=== PATIENT | female | born 1950 | race Hispanic/Latino ===

== ENCOUNTER → 2020-12-31 | Outpatient (CLI) | payer OTHER | END | disposition home or self-care (01) | LOC: RAH 10:11 | PROVIDERS: ATTEND Obstetrics & Gynecology | DX: N85.4 Malposition of uterus (principal); N85.8 Other specified noninflammatory disorders of uterus | CPT/HCPCS: 76856 ==

== ENCOUNTER → 2022-12-04 | Outpatient (CLI) | payer OTHER | END | disposition home or self-care (01) | LOC: SHCH 10:55 | PROVIDERS: ATTEND Internal Medicine | DX: I65.23 Occlusion and stenosis of bilateral carotid arteries (principal); R09.89 Other specified symptoms and signs involving the circulatory and respiratory systems | CPT/HCPCS: 93880 ==

== ENCOUNTER → 2023-01-04 | Outpatient (CLI) | payer OTHER ==
[2022-12-30 12:23] VITALS: BP 186/82
[2022-12-30 12:24] VITALS: BP 140/70
[~2023-01-04] VITALS: Ht 152.4 cm; Wt 82.7 kg
[~2023-01-04] MED LIST: ASPI-1197 PO; GLIP5TAB11 PO; LEVO50TA11 PO; LISI40TA9 PO; METF-444 PO; PRAV40TA3 PO
== END | disposition home or self-care (01) ==
LOC: RAH 01:21
PROVIDERS: ATTEND Orthopaedic Surgery
DX: M17.11 Unilateral primary osteoarthritis, right knee (principal)
CPT/HCPCS: 73700

== ENCOUNTER 2023-01-05 09:50 | Observation (INO) | payer OTHER ==
[2022-12-30 11:38] LABS: BASOPHILS % (AUTO) 0.3 % (0.0-5.0); EOSINOPHILS % (AUTO) 1.8 % (0.0-8.0); HEMATOCRIT 40.9 % (36-48); LYMPHOCYTES % (AUTO) 36.5 % (21.0-51.0); MEAN CORPUSCULAR HEMOGLOBIN 28.7 pg (27.0-33.0); MEAN CORPUSCULAR VOLUME 89.7 fL (79-99); MONOCYTES % (AUTO) 7.3 % (3.0-13.0); NEUTROPHILS % (AUTO) 53.9 % (40.0-77.0); PLATELET COUNT (AUTO) 274 K/uL (130-400); RED BLOOD CELL COUNT(AUTO) 4.56 MIL/uL (4.00-5.50); RED CELL DISTRIBUTION WIDTH 12.6 % (11.0-15.5); WHITE BLOOD COUNT (AUTO) 6.3 K/uL (4.8-10.8)
[2022-12-30 11:59] LABS: CREATININE 0.6 mg/dL (0.5-1.5); POTASSIUM 4.6 mmol/L (3.5-5.1)
[2022-12-30 12:01] LABS: INR 0.93 (0.85-1.15); PROTHROMBIN TIME 9.9 SEC (9.6-11.6)
[2022-12-30 12:02] LABS: PARTIAL THROMBOPLASTIN TIME 25.6 SEC (26.3-35.5)
[~2023-01-05] VITALS: Ht 152.4 cm; Wt 82.7 kg
[2023-01-05] VITALS (24 sets, daily range): BP systolic 115–186; BP diastolic 50–82
[2023-01-05] MEDS ORDERED: CEFAZOLIN SODIUM 2 GM VIAL ONE ×2 (10:05→10:15)
[2023-01-05] MEDS ORDERED: 0.9%NACL 1000ML 0 ML IV ONE (10:05)
[2023-01-05] MEDS ORDERED: 0.9%NACL 1000ML 1,000 ML IV ONE (10:15)
[2023-01-05] MEDS ORDERED: LIDOCAINE PF 100MG/5ML (2%) SYRINGE 5ML ONE (14:28)
[2023-01-05] MEDS ORDERED: ONDANSETRON 4MG INJ ONE (14:28)
[2023-01-05] MEDS ORDERED: GLYCOPYRROLATE 1 MG/5 ML SYRINGE ONE (14:29)
[2023-01-05] MEDS ORDERED: FENTANYL CITRATE PF 50 MCG/1 ML 2ML VIAL ONE ×2 (14:29→15:23)
[2023-01-05] MEDS ORDERED: MIDAZOLAM HCL 1 MG/ML 2ML VIAL ONE (14:29)
[2023-01-05] MEDS ORDERED: ROCURONIUM 10MG/1ML SYR 10 MG/ML ML ONE ×2 (14:29→15:24)
[2023-01-05] MEDS ORDERED: PROPOFOL 10 MG/ML 20ML VIAL IV ONE (14:29)
[2023-01-05] MEDS ORDERED: DEXAMETHASONE SOD PHOSPHATE 10MG/ML 1ML VIAL ONE (14:29)
[2023-01-05] MEDS ORDERED: NEOSTIGMINE 5MG/5ML SYR IV ONE (14:29)
[2023-01-05] MEDS ORDERED: TRANEXAMIC ACID 1000MG/10ML ONE (14:36)
[2023-01-05] MEDS ORDERED: ROPIVACAINE 0.5% 5MG/ML 30ML IJ ONE (14:36)
[2023-01-05] MEDS ORDERED: CEFAZOLIN SODIUM 2 GM VIAL IVPB ONE (15:15)
[2023-01-05] MEDS ORDERED: TRANEXAMIC ACID 1000MG/10ML IV ONE (15:20)
[2023-01-05] MEDS ORDERED: ONDANSETRON 4MG INJ IVP PRN (15:30)
[2023-01-05] MEDS ORDERED: KCL 20 MEQ ERTAB PO PRN (15:30)
[2023-01-05] MEDS ORDERED: POTASSIUM CHLORIDE 10% ELIXIR 20 MEQ/15 ML UDCUP PO PRN (15:30)
[2023-01-05] MEDS ORDERED: 0.9%NACL 1000ML 1,000 ML IV SCH (15:30)
[2023-01-05] MEDS ORDERED: POTASSIUM CHLORIDE 20MEQ/100ML 100 ML IV PRN (15:30)
[2023-01-05] MEDS ORDERED: MEPERIDINE-PF 25 MG/ML SYG ONE ×2 (17:13→17:33)
[2023-01-05] MEDS: ACETAMINOPHEN 1,000 MG/100 ML VIAL IV SCH ×2 (17:30→21:39)
[2023-01-05] MEDS: IBUPROFEN 800MG + NS 250ML IV SCH (18:44)
[2023-01-05] MEDS: TRAMADOL HCL 50 MG TABLET PO SCH (19:05)
[2023-01-05] MEDS ORDERED: METFORMIN HCL 500 MG TABLET PO SCH (21:00)
[2023-01-05] MEDS ORDERED: GLIPIZIDE 5 MG TABLET PO SCH (21:00)
[2023-01-05] MEDS: CEFAZOLIN SODIUM 1 GM VIAL IVPB SCH (21:39)
[2023-01-05] MEDS: ASPIRIN 81 MG EC TAB PO SCH (21:40)
[2023-01-05] MEDS: METFORMIN HCL 500 MG TABLET PO SCH (21:41)
[2023-01-05] MEDS: HYDROCODONE/ACETAMINOPHEN 5/325 MG TAB PO PRN (21:44)
[2023-01-05] MEDS: INSULIN HUMULIN R 100 UNIT/ML 3ML SQ SCH (21:55)
[2023-01-05] MEDS: FAMOTIDINE 20MG TAB PO SCH (22:06)
[2023-01-05] MEDS: SIMVASTATIN 20 MG TABLET PO SCH (22:06)
[2023-01-06] MEDS: TRAMADOL HCL 50 MG TABLET PO SCH ×5 (00:16→23:25)
[2023-01-06] MEDS: IBUPROFEN 800MG + NS 250ML IV SCH ×2 (01:42→09:40)
[2023-01-06] MEDS: ACETAMINOPHEN 1,000 MG/100 ML VIAL IV SCH (02:49)
[2023-01-06 03:22] VITALS: BP 121/57
[2023-01-06 04:47] LABS: HEMATOCRIT 32.9 % (36-48); MEAN CORPUSCULAR HEMOGLOBIN 28.7 pg (27.0-33.0); MEAN CORPUSCULAR HGB CONC 31.9 g/dL (32.0-36.0); MEAN CORPUSCULAR VOLUME 89.9 fL (79-99); RED BLOOD CELL COUNT(AUTO) 3.66 MIL/uL (4.00-5.50); RED CELL DISTRIBUTION WIDTH 12.7 % (11.0-15.5); WHITE BLOOD COUNT (AUTO) 6.8 K/uL (4.8-10.8)
[2023-01-06 04:56] LABS: CREATININE 0.6 mg/dL (0.5-1.5); POTASSIUM 3.7 mmol/L (3.5-5.1)
[2023-01-06] MEDS: CEFAZOLIN SODIUM 1 GM VIAL IVPB SCH (05:16)
[2023-01-06] MEDS: INSULIN HUMULIN R 100 UNIT/ML 3ML SQ SCH ×4 (06:13→21:00)
[2023-01-06] MEDS: LEVOTHYROXINE 50 MCG TABLET PO SCH (06:14)
[2023-01-06 08:00] VITALS: BP 135/55
[2023-01-06] MEDS: HYDROCODONE/ACETAMINOPHEN 10/325 MG TAB PO PRN ×3 (09:19→19:39)
[2023-01-06] MEDS: POLYETHYLENE GLYCOL 3350 17 GM POWD.PACK PO SCH (09:19)
[2023-01-06] MEDS: METFORMIN HCL 500 MG TABLET PO SCH ×2 (09:19→17:16)
[2023-01-06] MEDS: ASPIRIN 81 MG EC TAB PO SCH ×2 (09:20→19:38)
[2023-01-06] MEDS: LISINOPRIL 40 MG TABLET PO SCH (09:20)
[2023-01-06] MEDS: GLIPIZIDE 5 MG TABLET PO SCH ×2 (09:20→17:16)
[2023-01-06] MEDS: FAMOTIDINE 20MG TAB PO SCH ×2 (09:20→19:38)
[2023-01-06 12:00] VITALS: BP 122/56
[2023-01-06 16:00] VITALS: BP 163/52
[2023-01-06 19:30] VITALS: BP 179/56
[2023-01-06] MEDS: SIMVASTATIN 20 MG TABLET PO SCH (19:38)
[2023-01-06] MEDS: MORPHINE 4 MG SYG IVP PRN (21:54)
[2023-01-06 23:31] VITALS: BP 183/69
[2023-01-07] VITALS (11 sets, daily range): BP systolic 121–195; BP diastolic 58–80
[2023-01-07] MEDS: HYDROCODONE/ACETAMINOPHEN 10/325 MG TAB PO PRN ×5 (00:36→20:58)
[2023-01-07] MEDS: MORPHINE 4 MG SYG IVP PRN ×2 (02:39→09:31)
[2023-01-07 04:33] LABS: BASOPHILS % (AUTO) 0.2 % (0.0-5.0); EOSINOPHILS % (AUTO) 0.5 % (0.0-8.0); HEMATOCRIT 33.3 % (36-48); LYMPHOCYTES % (AUTO) 22.5 % (21.0-51.0); MEAN CORPUSCULAR HEMOGLOBIN 28.5 pg (27.0-33.0); MEAN CORPUSCULAR HGB CONC 32.1 g/dL (32.0-36.0); MEAN CORPUSCULAR VOLUME 88.8 fL (79-99); NEUTROPHILS % (AUTO) 67.3 % (40.0-77.0); PLATELET COUNT (AUTO) 207 K/uL (130-400); RED BLOOD CELL COUNT(AUTO) 3.75 MIL/uL (4.00-5.50); RED CELL DISTRIBUTION WIDTH 12.6 % (11.0-15.5); WHITE BLOOD COUNT (AUTO) 8.1 K/uL (4.8-10.8)
[2023-01-07 04:49] LABS: ALBUMIN 2.8 g/dL (3.5-5.0); CREATININE 0.6 mg/dL (0.5-1.5); POTASSIUM 3.5 mmol/L (3.5-5.1); TOTAL PROTEIN, SERUM 6.4 g/dL (6.0-8.3)
[2023-01-07] MEDS: TRAMADOL HCL 50 MG TABLET PO SCH ×3 (05:42→17:11)
[2023-01-07] MEDS: LEVOTHYROXINE 50 MCG TABLET PO SCH (05:43)
[2023-01-07] MEDS: INSULIN HUMULIN R 100 UNIT/ML 3ML SQ SCH ×4 (05:53→20:28)
[2023-01-07] MEDS: METFORMIN HCL 500 MG TABLET PO SCH ×2 (09:31→17:07)
[2023-01-07] MEDS: POLYETHYLENE GLYCOL 3350 17 GM POWD.PACK PO SCH (09:31)
[2023-01-07] MEDS: LISINOPRIL 40 MG TABLET PO SCH (09:31)
[2023-01-07] MEDS: FERROUS GLUCONATE 324MG TABLET.DR PO SCH ×2 (09:31→20:32)
[2023-01-07] MEDS: FAMOTIDINE 20MG TAB PO SCH ×2 (09:31→20:32)
[2023-01-07] MEDS: ASPIRIN 81 MG EC TAB PO SCH ×2 (09:32→20:32)
[2023-01-07] MEDS: GLIPIZIDE 5 MG TABLET PO SCH ×2 (09:32→17:07)
[2023-01-07] MEDS: HYDROCODONE/ACETAMINOPHEN 5/325 MG TAB PO PRN (13:13)
[2023-01-07] MEDS ORDERED: CLONIDINE HCL 0.1 MG TABLET PO ONE (19:30)
[2023-01-07] MEDS: SIMVASTATIN 20 MG TABLET PO SCH (20:32)
[2023-01-08] MEDS: TRAMADOL HCL 50 MG TABLET PO SCH ×3 (00:16→12:44)
[2023-01-08 04:34] VITALS: BP 150/65
[2023-01-08] MEDS: LEVOTHYROXINE 50 MCG TABLET PO SCH (05:18)
[2023-01-08] MEDS: INSULIN HUMULIN R 100 UNIT/ML 3ML SQ SCH ×2 (06:13→11:22)
[2023-01-08] MEDS: HYDROCODONE/ACETAMINOPHEN 10/325 MG TAB PO PRN (08:09)
[2023-01-08] MEDS: GLIPIZIDE 5 MG TABLET PO SCH (08:10)
[2023-01-08] MEDS: LISINOPRIL 40 MG TABLET PO SCH (08:10)
[2023-01-08] MEDS: METFORMIN HCL 500 MG TABLET PO SCH (08:10)
[2023-01-08] MEDS: FERROUS GLUCONATE 324MG TABLET.DR PO SCH (08:10)
[2023-01-08] MEDS: ASPIRIN 81 MG EC TAB PO SCH (08:10)
[2023-01-08] MEDS: POLYETHYLENE GLYCOL 3350 17 GM POWD.PACK PO SCH (08:10)
[2023-01-08] MEDS: FAMOTIDINE 20MG TAB PO SCH (08:10)
[2023-01-08 08:17] VITALS: BP 133/55
[2023-01-08 11:44] VITALS: BP 155/76
[2023-01-08] MEDS: MORPHINE 4 MG SYG IVP PRN (12:48)
[2023-01-08] MEDS ORDERED: BISACODYL 10 MG SUPP.RECT RC PRN (15:30)
== END 2023-01-08 16:40 ==
LOC: DAH 09:50 → DAHIP 09:51 → 4AH 18:00
PROVIDERS: ADMIT Orthopaedic Surgery; ATTEND Orthopaedic Surgery
DX: M17.11 Unilateral primary osteoarthritis, right knee (principal); Z20.822 Contact with and (suspected) exposure to COVID-19; I10 Essential (primary) hypertension; E11.9 Type 2 diabetes mellitus without complications; D64.9 Anemia, unspecified; E03.9 Hypothyroidism, unspecified; E78.5 Hyperlipidemia, unspecified; E07.9 Disorder of thyroid, unspecified; Z79.899 Other long term (current) drug therapy; Z98.890 Other specified postprocedural states; Z68.30 Body mass index [BMI] 30.0-30.9, adult
CPT/HCPCS: 80048 ×2; 85025 ×2; 85610; 85730; 87426; 36415 ×3; 93005; 87641; 27447; 64447 ×2; 96365; 96366 ×2; 96367; 96368; 82948 ×13; 96375; 85027; 97161; 97039 ×6; 97116 ×6; 97530 ×4; 96376 ×2; 80053; A6260; C1776 ×4; G0378 ×68; A4663; J7030 ×2; J7120; J3010 ×2; J0690 ×4; J3490 ×3; J1100; J2710; J2001; J2250; J2704; J2405; J2175 ×2; J2795; J1741 ×3; J1815; A6223; G0168; A4649 ×3; A6212; A5120; A4215; A4223; A4222; A4221; J2270 ×4

== ENCOUNTER → 2023-03-19 | Outpatient (CLI) | payer OTHER | END | disposition home or self-care (01) | LOC: RAH 13:27 | PROVIDERS: ATTEND Orthopaedic Surgery | DX: M17.12 Unilateral primary osteoarthritis, left knee (principal); M85.88 Other specified disorders of bone density and structure, other site | CPT/HCPCS: 73700 ==

== ENCOUNTER 2023-03-24 06:00 | Observation (INO) | payer OTHER ==
[2023-03-17 10:30] LABS: BASOPHILS # (AUTO) 0.02 K/uL (0.00-0.20); BASOPHILS % (AUTO) 0.3 % (0.0-5.0); EOSINOPHILS # (AUTO) 0.15 K/uL (0.00-0.70); EOSINOPHILS % (AUTO) 2.2 % (0.0-8.0); HEMATOCRIT 39.9 % (36-48); IMMATURE GRANULOCYTE ABSOLUTE 0.01 K/uL (0-1); LYMPHOCYTES # (AUTO) 2.3 K/uL (1.0-4.8); LYMPHOCYTES % (AUTO) 33.5 % (21.0-51.0); MEAN CORPUSCULAR HEMOGLOBIN 27.5 pg (27.0-33.0); MEAN CORPUSCULAR HGB CONC 31.8 g/dL (32.0-36.0); MEAN CORPUSCULAR VOLUME 86.4 fL (79-99); MONOCYTES # (AUTO) 0.5 K/uL (0.1-1.0); NEUTROPHILS # (AUTO) 3.7 K/uL (1.8-7.7); NEUTROPHILS % (AUTO) 55.9 % (40.0-77.0); PLATELET COUNT (AUTO) 288 K/uL (130-400); RED BLOOD CELL COUNT(AUTO) 4.62 MIL/uL (4.00-5.50); RED CELL DISTRIBUTION WIDTH 12.7 % (11.0-15.5); WHITE BLOOD COUNT (AUTO) 6.7 K/uL (4.8-10.8)
[2023-03-17 10:39] VITALS: BP 179/86; PULSE 68; RESP 16
[2023-03-17 10:44] LABS: INR < 0.93 (0.85-1.15); PROTHROMBIN TIME 10.4 SEC (9.6-11.6)
[2023-03-17 10:45] LABS: PARTIAL THROMBOPLASTIN TIME 25.8 SEC (26.3-35.5)
[2023-03-17 10:53] LABS: CREATININE 0.5 mg/dL (0.5-1.5); POTASSIUM 4.3 mmol/L (3.5-5.1)
[~2023-03-24] VITALS: Ht 152.4 cm; Wt 78.2 kg
[2023-03-24] VITALS (28 sets, daily range): BP systolic 117–159; BP diastolic 49–85; PULSE 62–82; RESP 12–19; O2SAT 98–100
[2023-03-24] MEDS ORDERED: CEFAZOLIN SODIUM 2 GM VIAL ONE (06:29)
[2023-03-24] MEDS ORDERED: 0.9%NACL 1000ML 1,000 ML IV ONE (06:29)
[2023-03-24] MEDS ORDERED: HYDROMORPHONE 1 MG INJ ONE (06:58)
[2023-03-24] MEDS ORDERED: FAMOTIDINE 20MG VIAL IV ONE (06:58)
[2023-03-24] MEDS ORDERED: TRANEXAMIC ACID 1000MG/10ML ONE (07:00)
[2023-03-24] MEDS ORDERED: LIDOCAINE PF 100MG/5ML (2%) SYRINGE 5ML ONE (07:05)
[2023-03-24] MEDS ORDERED: PROPOFOL 10 MG/ML 20ML VIAL IV ONE ×2 (07:06→09:55)
[2023-03-24] MEDS ORDERED: GLYCOPYRROLATE 1 MG/5 ML SYRINGE ONE (07:06)
[2023-03-24] MEDS ORDERED: FENTANYL CITRATE PF 50 MCG/1 ML 2ML VIAL ONE ×2 (07:06→10:30)
[2023-03-24] MEDS ORDERED: ROCURONIUM 10MG/1ML SYR 10 MG/ML ML ONE (07:06)
[2023-03-24] MEDS ORDERED: ROPIVACAINE 0.5% 5MG/ML 30ML IJ ONE (07:30)
[2023-03-24] MEDS ORDERED: NEOSTIGMINE 5MG/5ML SYR IV ONE (09:53)
[2023-03-24] MEDS ORDERED: ONDANSETRON 4MG INJ IVP PRN (10:00)
[2023-03-24] MEDS ORDERED: ONDANSETRON 4MG INJ ONE (10:03)
[2023-03-24] MEDS ORDERED: ACETAMINOPHEN 1,000 MG/100 ML VIAL IV ONE (11:21)
[2023-03-24] MEDS: INSULIN HUMULIN R 100 UNIT/ML 3ML SQ SCH ×3 (11:30→21:00)
[2023-03-24] MEDS ORDERED: MORPHINE 4 MG SYG IVP PRN (11:30)
[2023-03-24] MEDS ORDERED: HYDROCODONE/ACETAMINOPHEN 5/325 MG TAB PO PRN (11:30)
[2023-03-24] MEDS: LISINOPRIL 40 MG TABLET PO SCH (12:21)
[2023-03-24] MEDS: METFORMIN HCL 500 MG TABLET PO SCH ×2 (13:00→21:00)
[2023-03-24] MEDS: GLIPIZIDE 5 MG TABLET PO SCH ×2 (13:00→21:00)
[2023-03-24] MEDS: 0.9%NACL 1000ML 1,000 ML IV SCH ×2 (13:01→21:27)
[2023-03-24] MEDS: TRAMADOL HCL 50 MG TABLET PO SCH ×3 (13:02→23:27)
[2023-03-24] MEDS: ACETAMINOPHEN 1,000 MG/100 ML VIAL IV SCH ×3 (15:00→23:28)
[2023-03-24] MEDS: IBUPROFEN 800MG + NS 250ML IV SCH ×2 (15:06→21:26)
[2023-03-24] MEDS ORDERED: ACETAMINOPHEN 1,000 MG/100 ML VIAL IV SCH (17:30)
[2023-03-24] MEDS ORDERED: IBUPROFEN 800MG + NS 250ML IV SCH (18:00)
[2023-03-24] MEDS: FAMOTIDINE 20MG TAB PO SCH (21:26)
[2023-03-25 04:22] LABS: HEMATOCRIT 33.7 % (36-48); MEAN CORPUSCULAR HEMOGLOBIN 27.1 pg (27.0-33.0); MEAN CORPUSCULAR HGB CONC 30.9 g/dL (32.0-36.0); MEAN CORPUSCULAR VOLUME 87.8 fL (79-99); PLATELET COUNT (AUTO) 195 K/uL (130-400); RED BLOOD CELL COUNT(AUTO) 3.84 MIL/uL (4.00-5.50); RED CELL DISTRIBUTION WIDTH 12.8 % (11.0-15.5); WHITE BLOOD COUNT (AUTO) 6.2 K/uL (4.8-10.8)
[2023-03-25 04:28] LABS: CREATININE 0.6 mg/dL (0.5-1.5); POTASSIUM 3.6 mmol/L (3.5-5.1)
[2023-03-25 04:36] VITALS: BP 129/73; PULSE 60; RESP 20
[2023-03-25] MEDS: ACETAMINOPHEN 1,000 MG/100 ML VIAL IV SCH (04:55)
[2023-03-25] MEDS: 0.9%NACL 1000ML 1,000 ML IV SCH (04:57)
[2023-03-25] MEDS: TRAMADOL HCL 50 MG TABLET PO SCH ×4 (06:20→23:43)
[2023-03-25] MEDS: LEVOTHYROXINE 50 MCG TABLET PO SCH (06:20)
[2023-03-25] MEDS: IBUPROFEN 800MG + NS 250ML IV SCH (06:20)
[2023-03-25] MEDS: INSULIN HUMULIN R 100 UNIT/ML 3ML SQ SCH ×4 (06:24→19:36)
[2023-03-25 08:00] VITALS: BP 138/67; PULSE 60; RESP 16; O2SAT 97
[2023-03-25] MEDS: FAMOTIDINE 20MG TAB PO SCH ×2 (08:07→19:35)
[2023-03-25] MEDS: METFORMIN HCL 500 MG TABLET PO SCH ×2 (08:07→19:35)
[2023-03-25] MEDS: POLYETHYLENE GLYCOL 3350 17 GM POWD.PACK PO SCH (08:07)
[2023-03-25] MEDS: LISINOPRIL 40 MG TABLET PO SCH (08:07)
[2023-03-25] MEDS: HYDROCODONE/ACETAMINOPHEN 10/325 MG TAB PO PRN ×2 (08:08→19:35)
[2023-03-25] MEDS: GLIPIZIDE 5 MG TABLET PO SCH ×2 (08:08→19:35)
[2023-03-25 12:00] VITALS: BP 141/75; PULSE 63; RESP 16
[2023-03-25 16:00] VITALS: BP 158/57; PULSE 74; RESP 16
[2023-03-25 19:38] VITALS: BP 148/62; PULSE 67; RESP 18
[2023-03-25 23:00] VITALS: BP 164/68; PULSE 70; RESP 16
[2023-03-26 04:00] VITALS: BP 177/59; PULSE 72; RESP 16
[2023-03-26] MEDS: INSULIN HUMULIN R 100 UNIT/ML 3ML SQ SCH ×3 (05:57→16:30)
[2023-03-26] MEDS: LEVOTHYROXINE 50 MCG TABLET PO SCH (06:07)
[2023-03-26] MEDS: TRAMADOL HCL 50 MG TABLET PO SCH ×3 (06:08→16:58)
[2023-03-26] MEDS ORDERED: DOXY100C5 PO (07:56)
[2023-03-26 08:00] VITALS: BP 178/76; PULSE 71; RESP 18; O2SAT 97
[2023-03-26] MEDS: HYDROCODONE/ACETAMINOPHEN 10/325 MG TAB PO PRN (08:51)
[2023-03-26] MEDS: LISINOPRIL 40 MG TABLET PO SCH (09:44)
[2023-03-26] MEDS: POLYETHYLENE GLYCOL 3350 17 GM POWD.PACK PO SCH (09:44)
[2023-03-26] MEDS: FAMOTIDINE 20MG TAB PO SCH (09:44)
[2023-03-26] MEDS: METFORMIN HCL 500 MG TABLET PO SCH (09:44)
[2023-03-26] MEDS: GLIPIZIDE 5 MG TABLET PO SCH (09:45)
[2023-03-26 12:00] VITALS: BP 154/77; PULSE 77; RESP 18
[2023-03-26 16:00] VITALS: BP 168/70; PULSE 70; RESP 18
[2023-03-27] MEDS ORDERED: BISACODYL 10 MG SUPP.RECT RC PRN (10:00)
== END 2023-03-26 18:53 ==
LOC: DAH 06:00 → 4DH 06:01
PROVIDERS: ADMIT Orthopaedic Surgery; ATTEND Orthopaedic Surgery
DX: M17.12 Unilateral primary osteoarthritis, left knee (principal); G89.18 Other acute postprocedural pain; E11.9 Type 2 diabetes mellitus without complications; E78.5 Hyperlipidemia, unspecified; I10 Essential (primary) hypertension; Z75.1 Person awaiting admission to adequate facility elsewhere; Z79.899 Other long term (current) drug therapy
CPT/HCPCS: 36415; 80048; 82948; 85025; 85027; 85610; 85730; 87641; 93005; 96365; 96366; 96375; 96376; 97039; C1713; G0378; J1170; J1741; J2001; J2270; J2405; J2704; J2710; J2795; J3010; J3490; J7030; A4215; A4221; A4222; A4223; A4649; A4663; A4930; A6212; A6223; A6260; A6450; C1776; G0168; J0690